=== PATIENT | male | born 1940 | race Two or more races ===

== ENCOUNTER 2020-08-28 10:31 | Emergency (ER) | payer OTHER ==
[2020-08-28 10:50] VITALS: BMI 24.7
[2020-08-28 12:50] LABS: EOS % 6.2 % (0-4.5); HEMATOCRIT 32.9 % (35.4-49); MCH 30.9 pg (25.7-33.7); MCHC 33.4 g/dl (32.0-35.9); MEAN CELL VOLUME 92.8 fl (80-96); MEAN PLT VOLUME 8.5 fl (7.5-11.1); MONO % 10.5 % (3.8-10.2); NEUT % 53.3 % (42.8-82.8); PLATELET COUNT 234 10^3/uL (134-434); RBC 3.55 M/mm3 (4.00-5.60); RDW 14.1 % (11.9-15.9); WHITE BLOOD COUNT 6.5 K/mm3 (4.0-10.0)
[2020-08-28 13:09] LABS: CHLORIDE 109 mmol/L (98-107); SODIUM 140 mmol/L (136-145)
[2020-08-28 13:10] LABS: CALCIUM 8.7 mg/dL (8.5-10.1)
[2020-08-28 13:11] LABS: ALBUMIN 3.5 g/dl (3.4-5.0); ANION GAP 6 MMOL/L (8-16); CO2 25 mmol/L (21-32); GLUCOSE,RANDOM 94 mg/dL (74-106)
[2020-08-28 13:15] LABS: BILIRUBIN,TOTAL 0.2 mg/dL (0.2-1); CREATININE 1.5 mg/dL (0.55-1.3); SGOT/AST 34 U/L (15-37); SGPT/ALT 38 U/L (13-61)
[2020-08-28 13:16] LABS: ALK PHOS 91 U/L (45-117); TOT PROT 6.9 g/dl (6.4-8.2)
[2020-08-28 14:38] VITALS: BP 136/71; PULSE 66; TEMP 98.4
== END 2020-08-28 14:41 | disposition home or self-care (01) ==
LOC: JER 10:31
DX: R55 Syncope and collapse (principal)
CPT/HCPCS: 36415; 70450-TC; 80053; 82550; 82962; 84484; 85025; 93005; 93010; 99285-25

== ENCOUNTER 2023-07-22 14:10 | Emergency (ER) | payer OTHER ==
[2023-07-22 14:15] VITALS: BP 167/65; PULSE 96; RESP 18; TEMP 98.3; BMI 25.8
[2023-07-22] MEDS ORDERED: METOCLOPRAMIDE HCL INJECTION 10 MG/2 ML VIAL ONE (15:02)
[2023-07-22] MEDS ORDERED: ACETAMINOPHEN INJECTION 100 ML IVPB ONE (15:02)
[2023-07-22] MEDS: METOCLOPRAMIDE HCL INJECTION 10 MG/2 ML VIAL IVPUSH ONE (15:20)
[2023-07-22] MEDS: SODIUM CHLORIDE 1,000 ML IV STA (15:20)
[2023-07-22] MEDS: ACETAMINOPHEN 1000 MG/100 ML BAG IVPB ONE (15:20)
[2023-07-22 15:30] LABS: BASO % 0.9 % (0-2.0); EOS % 2.7 % (0-4.5); HEMATOCRIT 40.1 % (35.4-49); HEMOGLOBIN 13.4 GM/dL (11.7-16.9); LYMPH % 33.1 % (8-40); MCH 31.1 pg (25.7-33.7); MCHC 33.4 g/dl (32.0-35.9); MEAN CELL VOLUME 93.4 fl (80-96); MEAN PLT VOLUME 8.3 fl (7.5-11.1); MONO % 8.1 % (3.8-10.2); NEUT % 55.2 % (42.8-82.8); PLATELET COUNT 223 10^3/uL (134-434); RBC 4.29 M/mm3 (4.00-5.60); RDW 14.9 % (11.9-15.9); WHITE BLOOD COUNT 6.7 K/mm3 (4.0-10.0)
[2023-07-22 15:36] LABS: INR 1.02 (0.83-1.09); PROTHROMBIN TIME (PATIENT) 11.5 SEC (9.7-13.0)
[2023-07-22 15:39] LABS: ACTIVATED PTT 30.2 SECONDS (25.2-36.5)
[2023-07-22 15:56] LABS: POTASSIUM 4.3 mmol/L (3.5-5.1)
[2023-07-22 16:02] LABS: CALCIUM 9.2 mg/dL (8.5-10.1)
[2023-07-22 16:03] LABS: ALBUMIN 3.9 g/dl (3.4-5.0); BLOOD UREA NITROGEN 20.4 mg/dL (7-18)
[2023-07-22 16:06] LABS: CREATININE 1.3 mg/dL (0.55-1.3)
[2023-07-22 16:07] LABS: BILIRUBIN,TOTAL 0.8 mg/dL (0.2-1); TOT PROT 7.4 g/dl (6.4-8.2)
== END 2023-07-22 17:52 | disposition home or self-care (01) ==
LOC: JER 14:10
PROC: 3E033NZ Introduction of Analgesics, Hypnotics, Sedatives into Peripheral Vein, Percutaneous Approach (ICD-10-PCS; principal; 2023-07-22)
PROC: 3E033GC Introduction of Other Therapeutic Substance into Peripheral Vein, Percutaneous Approach (ICD-10-PCS; 2023-07-22)
PROC: 3E0337Z Introduction of Electrolytic and Water Balance Substance into Peripheral Vein, Percutaneous Approach (ICD-10-PCS; 2023-07-22)
DX: R51.9 Headache, unspecified (principal)
CPT/HCPCS: 36415; 70450-TC; 80053; 85025; 85610; 85730; 96361; 96374; 96375; 99284-25; J0131